=== PATIENT | female | born 1945 | race Caucasian/White ===

== ENCOUNTER → 2017-08-06 | Outpatient (CLI) | payer MEDICARE ==
[~2017-08-06] MED LIST: AMBIEN10 MG PO; ASPI-COR81 M1 PO; ASPIR-TRIN325 MG PO; CIPROFLOXACIN500 MG PO; CRESTOR10 M1 PO; CRESTOR5 MG PO; DIFLUCAN150 MG PO; KEFLEX500 MG PO; LISINOPRIL20 MG PO; LISINOPRIL40 MG PO; LOVENOX; OYSTER CALCIUM1 TA4 PO; OYSTER SHELL C PO; PLAVIX75 MG PO; VICODIN 5/500 505 MG PO; VITAMIN D1000 IU PO; Vicodin 5/500 505 MG PO; ZOLPIDEM10 M1 PO
[2017-08-06 09:05] VITALS: BP 138/72
== END | disposition home or self-care (01) ==
LOC: INJECTION 08:59
DX: M81.0 Age-related osteoporosis without current pathological fracture (principal)

== ENCOUNTER → 2019-03-09 | Outpatient (CLI) | payer MEDICARE | END | disposition home or self-care (01) | LOC: RAD 08:00 | DX: M54.40 Lumbago with sciatica, unspecified side (principal); M25.551 Pain in right hip; M79.604 Pain in right leg ==

== ENCOUNTER 2024-12-19 07:59 | Inpatient (IN) | payer MEDICARE ==
[~2024-12-19] VITALS: Ht 154.9 cm; Wt 60.0 kg
[2024-12-19 08:09] VITALS: BP 102/44
[2024-12-19] MEDS ORDERED: SODIUM CHLORIDE 0.9% 1,000 ML IV ONE ×2 (08:20→10:20)
[2024-12-19] MEDS ORDERED: Ondansetron Hydrochloride 4 MG/2 ML VIAL IV ONE (08:25)
[2024-12-19] MEDS ORDERED: MORPHINE Sulfate 2 MG/ML SYR IV ONE (08:25)
[2024-12-19] MEDS ORDERED: MELOXICAM15 MG PO (08:28)
[2024-12-19] MEDS ORDERED: SERTRALINE HYDR50 MG PO (08:29)
[2024-12-19] MEDS ORDERED: IOHEXOL 300 MG/ML 100 ML VIAL IV ONE (08:30)
[2024-12-19] MEDS ORDERED: ROSUVASTATIN CA40 MG PO (08:30)
[2024-12-19] MEDS ORDERED: TEMAZEPAM15 M1 PO (08:31)
[2024-12-19 08:47] LABS: BASO # 0.1 10*3/uL (0.0-0.1); BASO % 0.5 % (0.0-1.0); EOS # 0.2 10*3/uL (0.0-0.4); EOS % 1.4 % (1.0-4.0); HEMATOCRIT 29.2 % (37.0-47.0); MEAN CELL VOLUME 96.4 fl (81.0-99.0); MEAN CORPUSCULAR HGB CONC 32.2 g/dl (33.0-37.0); MEAN PLATELET VOLUME 9.8 fl (9.6-12.3); MONO # 0.8 10*3/uL (0.1-1.0); NEUT % 69.3 % (47.0-73.0); PLATELET COUNT AUTOMATED 195 10*3/uL (130-400); RED BLOOD COUNT 3.03 10*6/uL (4.10-5.10); RED CELL DISTRI WIDTH 15.1 % (0-14.5); WHITE BLOOD COUNT 11.5 10*3/uL (4.8-10.8)
[2024-12-19 09:08] LABS: POTASSIUM 3.7 mmol/L (3.4-5.1)
[2024-12-19] MEDS ORDERED: Piperacillin Sodium/Tazobact 50 ML IV ONE (10:20)
[2024-12-19] MEDS ORDERED: ACETAMINOPHEN 650 MG SUPP R PRN (12:25)
[2024-12-19] MEDS ORDERED: ACETAMINOPHEN 325 MG TAB PO PRN (12:25)
[2024-12-19] MEDS ORDERED: BISACODYL 5 MG TAB PO PRN (12:25)
[2024-12-19] MEDS ORDERED: Ondansetron Hydrochloride 4 MG/2 ML VIAL IV PRN (12:25)
[2024-12-19] MEDS ORDERED: Magnesium Hydroxide 30 ML UDC PO PRN (12:25)
[2024-12-19] MEDS ORDERED: BISACODYL 10 MG SUPP R PRN (12:25)
[2024-12-19 12:35] VITALS: BP 136/57
[2024-12-19 13:25] VITALS: BP 127/90
[2024-12-19 16:00] VITALS: BP 149/60
[2024-12-19] MEDS ORDERED: PIPERACILLIN SODIUM/TAZOBACTAM 2.25 GM in SODIUM CHLORIDE 0.9% 50 ML IV SCH (18:00)
[2024-12-19] MEDS ORDERED: TEMAZEPAM 15 MG CAP PO PRN (19:00)
[2024-12-19 20:00] VITALS: BP 135/51
[2024-12-19] MEDS ORDERED: Sertraline Hydrochloride 50 MG TAB PO SCH (22:10)
[2024-12-20] VITALS: BP 132/58
[2024-12-20] MEDS ORDERED: Pantoprazole Sodium 40 MG TAB PO SCH (06:00)
[2024-12-20 06:32] LABS: ACT PARTIAL THROMBO TIME 23.3 SECONDS (20.0-32.1)
[2024-12-20 07:16] LABS: BASO # 0.1 10*3/uL (0.0-0.1); BASO % 0.6 % (0.0-1.0); EOS # 0.2 10*3/uL (0.0-0.4); EOS % 2.6 % (1.0-4.0); HEMATOCRIT 23.8 % (37.0-47.0); MEAN CELL VOLUME 99.2 fl (81.0-99.0); MEAN CORPUSCULAR HGB 30.4 pg (27.0-31.0); MEAN CORPUSCULAR HGB CONC 30.7 g/dl (33.0-37.0); MEAN PLATELET VOLUME 9.8 fl (9.6-12.3); MONO # 0.7 10*3/uL (0.1-1.0); MONO % 8.3 % (3.0-9.0); NEUT # 4.4 10*3/uL (2.3-7.9); NEUT % 54.1 % (47.0-73.0); PLATELET COUNT AUTOMATED 164 10*3/uL (130-400); RED CELL DISTRI WIDTH 15.4 % (0-14.5); WHITE BLOOD COUNT 8.1 10*3/uL (4.8-10.8)
[2024-12-20 07:36] LABS: ALKALINE PHOSPHATASE 66 U/L (46-116); BUN 18 mg/dl (9-23); CHLORIDE 113 mmol/L (98-107); CHOLESTEROL 91 mg/dL (<200); LDL CHOLESTEROL 35 mg/dL (9-159); POTASSIUM 4.5 mmol/L (3.4-5.1); TOTAL PROTEIN 4.9 gm/dL (6.0-8.0); TRIGLYCERIDES 118 mg/dl (<150)
[2024-12-20 07:43] LABS: SGPT/ALT < 7 U/L (5-49)
[2024-12-20 08:00] VITALS: BP 121/52
[2024-12-20] MEDS ORDERED: Rosuvastatin Calcium 10 MG TABLET PO SCH (10:00)
[2024-12-20] MEDS ORDERED: Sertraline Hydrochloride 50 MG TAB PO SCH (10:00)
[2024-12-20] MEDS ORDERED: LISINOPRIL 40 MG TAB PO SCH (10:00)
[2024-12-20] MEDS ORDERED: Meloxicam 15 MG TAB PO SCH (10:00)
[2024-12-20 10:44] LABS: VITAMIN D, 25-HYDROXY 84.4 ng/mL (30-100)
[2024-12-20 12:00] VITALS: BP 118/47
[2024-12-20 16:00] VITALS: BP 140/58
[2024-12-20 20:00] VITALS: BP 122/47
[2024-12-21] VITALS (11 sets, daily range): BP systolic 132–152; BP diastolic 48–72
[2024-12-21 06:15] LABS: BASO # 0.1 10*3/uL (0.0-0.1); BASO % 0.6 % (0.0-1.0); EOS # 0.2 10*3/uL (0.0-0.4); EOS % 2.5 % (1.0-4.0); MEAN CELL VOLUME 99.6 fl (81.0-99.0); MEAN CORPUSCULAR HGB 30.7 pg (27.0-31.0); MEAN CORPUSCULAR HGB CONC 30.8 g/dl (33.0-37.0); MEAN PLATELET VOLUME 9.9 fl (9.6-12.3); MONO # 0.7 10*3/uL (0.1-1.0); MONO % 8.4 % (3.0-9.0); NEUT # 4.7 10*3/uL (2.3-7.9); NEUT % 59.3 % (47.0-73.0); PLATELET COUNT AUTOMATED 161 10*3/uL (130-400); RED BLOOD COUNT 2.41 10*6/uL (4.10-5.10); RED CELL DISTRI WIDTH 15.3 % (0-14.5)
[2024-12-21] MEDS ORDERED: SODIUM CHLORIDE 0.9% 500 ML IV SCH (10:45)
[2024-12-21] MEDS ORDERED: AMOX-CLAV 875-1 EACH PO (13:31)
[2024-12-21] MEDS ORDERED: PANTOPRAZOLE SO40 MG PO (13:31)
== END 2024-12-21 16:24 | disposition home or self-care (01) | DRG 377 ==
LOC: ED 07:59 → 4E 10:46 → EDHOLD 10:46 → 4E 12:22
PROVIDERS: Emergency Medicine; Student in an Organized Health Care Education/Training Program; ADMIT Internal Medicine; ATTEND Internal Medicine
PROC: 30233N1 Transfusion of Nonautologous Red Blood Cells into Peripheral Vein, Percutaneous Approach (ICD-10-PCS; principal; 2024-12-21)
DX: K62.5 Hemorrhage of anus and rectum (principal); E43 Unspecified severe protein-calorie malnutrition; N17.0 Acute kidney failure with tubular necrosis; K57.32 Diverticulitis of large intestine without perforation or abscess without bleeding; E87.20 Acidosis, unspecified; G45.9 Transient cerebral ischemic attack, unspecified; D64.9 Anemia, unspecified; R00.1 Bradycardia, unspecified; F17.210 Nicotine dependence, cigarettes, uncomplicated; R73.9 Hyperglycemia, unspecified; Z90.49 Acquired absence of other specified parts of digestive tract; Z98.51 Tubal ligation status; Z79.899 Other long term (current) drug therapy; Z68.25 Body mass index [BMI] 25.0-25.9, adult